=== PATIENT | male | born 1990 | race African-American/Black ===

== ENCOUNTER 2022-02-22 11:06 | Emergency (ER) | payer MEDICAID, OTHER ==
[2022-02-22] MEDS ORDERED: ALBU8HFA IH (11:33)
== END 2022-02-22 14:23 | disposition left against medical advice (07) ==
LOC: EMS 11:07
DX: R10.30 Lower abdominal pain, unspecified (principal); F41.9 Anxiety disorder, unspecified; Z53.21 Procedure and treatment not carried out due to patient leaving prior to being seen by health care provider